=== PATIENT | male | born 1960 | race Caucasian/White ===

== ENCOUNTER 2017-08-03 07:48 | Inpatient (IN) | payer BC, OTHER ==
--- NOTE | 2017-08-02 12:42 | GHP ---
[f rep st] PREOP HISTORY AND PHYSICAL He will be an a.m. admission for surgery at [facility] on Thursday, August 03, 2017. PROBLEM LIST: Right hip arthritis. HISTORY OF PRESENT ILLNESS: The patient is a 57-year-old man admitted for a right hip Liu resurfacing. He has had progressive pain in his right hip over the last 3 or 4 years. His activities are now very limited. I did his left BHR 3 years ago. He has decided to go ahead with hip resurfacing procedure on the right hip now. PAST MEDICAL HISTORY: He is treated for elevated cholesterol and hypertension. No history of heart disease, DVT, hepatitis, MRSA staph infection, sleep apnea or bleeding problems. CURRENT MEDICATIONS: Amlodipine/hydrochlorothiazide 1 tablet per day. Crestor 10 mg every other day, losartan 100 mg/hydrochlorothiazide 25 mg 1 tablet per day. DRUG ALLERGIES: Medications: None. Metal allergy: None. Latex allergy: None. SOCIAL HISTORY: The patient is single. He works as a [employer]. He lives in [place], [place]. He does not smoke cigarettes, and occasionally drinks alcohol. FAMILY HISTORY: Positive for cancer, diabetes, heart disease, and arthritis. PHYSICAL EXAMINATION: Height 6 feet 1 inch. Weight 192 pounds. BMI 25.3. EYES: Conjunctivae and sclerae are clear. Pupils are round and reactive. MOUTH : Good oral hygiene. No loose teeth. CHEST: Clear. HEART: Regular rhythm. No murmurs. EXTREMITIES: Pertinent findings limited to his right hip. He has full hip extension and 110 degrees of flexion. External rotation 20 degrees. Internal rotation 0 degrees. Abduction 20 degrees. Exam of his left hip shows 125 degrees of hip flexion. IMAGING: His films show severe degenerative arthritis of his right hip. He has multiple small cyst in his femoral head and a few small cysts in his acetabulum. His left BHR looks excellent. The left side is a 52 mm femoral head component, and a 58 mm acetabular component. IMPRESSION ON ADMISSION: 1. Right hip severe degenerative arthritis. He is prepared for a right hip Liu hip resurfacing arthroplasty. 2. Two and a half years status post successful left BHR. 3. Treatment for hypertension and elevated cholesterol. PLAN: He will undergo a right BHR. The surgery has been described to him, including the risks, complications, expectations, and recovery time. I have discussed with him the risk of dislocation, femoral neck fracture, infection, and sciatic nerve injury. He also was fully informed on the potential risk with metal ions in the blood and in the soft tissues around the hip joint. I have also advised him that the cyst in the femoral head. Potentially could create a problem. If there is enough damage to the femoral head, it would not be advisable to go ahead with resurfacing, and I might do a total hip replacement. All his questions have been answered, and he consents to surgery. Copy requested to: Dr. aJvier Vora [place] /[id number]/MODL MTDD
[~2017-08-03 07:48] MED LIST: POVIDONE-IODINE 20 ML in SODIUM CL IRRIG SOLUTION 500 ML IRR ONE; ROPIVACAINE 0.2% 80 MG, EPINEPHrine 0.2 MG, KETOROLAC TROMETHAMINE 30 MG in SYRINGE 0 ML IU ONE; TRANEXAMIC ACID 1,000 MG in NS 100 ML IV ONE
[2017-08-03] MEDS ORDERED: ceFAZolin 1 GM/5 ML SYR ONE (07:57)
[2017-08-03] MEDS ORDERED: LIDOCAINE 1% 2 ML INJ ONE (08:08)
[2017-08-03] MEDS ORDERED: FAMOTIDINE 20 MG TAB PO ONE (08:17)
[2017-08-03] MEDS ORDERED: ceFAZolin 2 GM/DEXTROSE 100 ML IV ONE (08:17)
[2017-08-03] MEDS ORDERED: ACETAMINOPHEN 325 MG TAB PO ONE (08:17)
[2017-08-03] MEDS ORDERED: ONDANSETRON 4 MG/2 ML VIAL IVP ONE (08:17)
[2017-08-03] MEDS ORDERED: GABAPENTIN 300 MG CAP PO ONE (08:17)
[2017-08-03] MEDS ORDERED: DEXAMETHASONE 4 MG/ML VIAL IVP ONE (08:17)
[2017-08-03] MEDS ORDERED: LIDOCAINE 1% 2 ML INJ ID PRN (08:18)
[2017-08-03] MEDS ORDERED: LR 1,000 ML IV ONE (08:18)
--- NOTE | 2017-08-03 08:24 | POSTANESTH ---
Post Anesthetic Evaluation Cardiovascular Status: Normal, Stable Respiratory Status: Normal, Stable Level of Consciousness/Mental Status: Can Participate in Eval, Mildly Sleepy, Arousable Pain Control: Adequate, Prn Tx Ordered Nausea/Vomiting Control: Adequate, Prn Tx Ordered Complications Possibly Related to Anesthesia: None Noted (LE still immobile secondary to spinal block.)
--- NOTE | 2017-08-03 08:26 | PDANEPAE ---
ANE History of Present Illness 57 yo male with R hip OA for resurfacing. ANE Past Medical History - Cardiovascular History Hx Hypertension: Yes Hx Arrhythmias: No Hx Chest Pain: No Hx Coronary Artery / Peripheral Vascular Disease: No Hx CHF / Valvular Disease: No Hx Palpitations: No Cardiovascular History Comment: HYPERLIPIDEMIA - Pulmonary History Hx COPD: No Hx Asthma/Reactive Airway Disease: No Hx Recent Upper Respiratory Infection: No Hx Oxygen in Use at Home: No Hx Sleep Apnea: No Sleep Apnea Screening Result - Last Documented: Negative - Neurologic History Hx Cerebrovascular Accident: No Hx Seizures: No Hx Dementia: No - Endocrine History Hx Diabetes: No Hypothyroid: No Hyperthyroid: No Obesity: no - Renal History Hx Renal Disorders: No - Liver History Hx Hepatic Disorders: No - Neurological & Psychiatric Hx Hx Neurological and Psychiatric Disorders: No - Cancer History Hx Cancer: No - Congenital Disorder History Hx Congenital Disorders: No - GI History Hx Gastrointestinal Disorders: No - Other Health History Other Health History: OSTEOARTHRITIS BILAT HIPS. CYST L HIP - Chronic Pain History Chronic Pain: Yes (R HIP) - Surgical History Prior Surgeries: L HIP RESURFACING. WISDOM TEETH EXTRACTION. COLONOSCOPY ANE Review of Systems Review of systems is: negative Review of Systems: - Exercise capacity METS (RN): 6 METS - Systems Constitutional: Reports: no symptoms Cardiac: Reports: no symptoms ANE Patient History - Allergies Allergies/Adverse Reactions: No Known Allergies Allergy (Unverified 12/19/14 12:10) - Home Medications Home Medications: Aspirin EC [Aspirin EC 81 mg (*)] 81 mg PO DAILY 12/13/14 [Last Taken 07/27/17] Herbals/Supplements -Info Only 1 ea PO DAILY 12/13/14 [Last Taken 12/18/14] Rosuvastatin Calcium [Crestor] 10 mg PO HS 12/13/14 [Last Taken 07/27/17] amLODIPine/VALSARTAN/HCTHIAZID [Exforge HCT 10-160-12.5 mg] 1 each PO DAILY [Last Taken 07/27/17] celeCOXIB [Celebrex (*)] 200 mg PO BID 07/21/17 [Last Taken 08/02/17] - NPO status NPO Status: no food or drink >8 hours - Anes Hx Anes Hx: no prior problems - Smoking Hx Smoking Status: Never smoked Marijuana use: No - Alcohol Use Alcohol Use: Rarely - Family Anes Hx Family Anes Hx: neg - N/A Family Hx Anesthesia Complications: NONE ANE Labs/Vital Signs - Labs - CBC Platelet Count: 245 - Labs - BMP Potassium: 4.2 Creatinine: 1 - Vital Signs Vital Signs: reviewed preoperatively; see RN documention for details Height: 185.42 cm Weight: 86.183 kg ANE Physical Exam - Airway Neck exam: FROM Mallampati Score: Class 1 Mouth exam: normal dental/mouth exam - Pulmonary Pulmonary: clear to auscultation - Cardiovascular Cardiovascular: bradycardia - ASA Status ASA Status: II ANE Anesthesia Plan Anesthesia Plan: spinal
--- NOTE | 2017-08-03 09:00 | PDHPUP ---
History & Physical Update H&P update statement: This history and physical update is based on an assessment of the patient which was completed after admission or registration (within 24 hours), but prior to the surgery/procedure. H&P update: H&P reviewed & patient examined
[2017-08-03] MEDS ORDERED: PROPOFOL/EMULSION 500 MG/50 ML BOTTLE IV ONE ×2 (09:40→10:36)
[2017-08-03] MEDS ORDERED: fentaNYL 100 MCG/2 ML INJ ONE (09:40)
[2017-08-03] MEDS ORDERED: LIDOCAINE 2% 5 ML SDV ONE (09:40)
[2017-08-03] MEDS ORDERED: ePHEDrine SULFATE 25 MG/5 ML SYR ONE (10:18)
[2017-08-03] MEDS ORDERED: VASOPRESSIN 20 UNIT/ML VIAL ONE (10:36)
[2017-08-03] MEDS ORDERED: ACETAMINOPHEN 500 MG TAB PO PRN (11:30)
[2017-08-03] MEDS ORDERED: DIAZEPAM 5 MG/ML 1 ML SYR IVP PRN (11:30)
[2017-08-03] MEDS ORDERED: LR 500 ML IV PRN (11:30)
[2017-08-03] MEDS ORDERED: fentaNYL 100 MCG/2 ML INJ IVP PRN (11:30)
[2017-08-03] MEDS ORDERED: PROMETHAZINE HCL 25 MG/ML INJ IVP PRN ×2 (11:30→11:41)
[2017-08-03] MEDS ORDERED: oxyCODONE IR 5 MG TAB PO PRN ×2 (11:30→11:41)
[2017-08-03] MEDS ORDERED: NALOXONE HCL 0.4 MG/ML INJ IVP PRN (11:30)
--- NOTE | 2017-08-03 11:31 | POSTOPPROG ---
Post Op Note Date of Operation: 08/03/17 Surgeon: Steven Salvador Director Of Exhibit Development: [place] Anesthesiologist: Karena Anesthesia: IV Sedation, Spinal Post-op Diagnosis: right hip arthritis Procedure: R BHR Inf/Abcess present in the surg proc area at time of surgery?: No EBL: 100-500
[2017-08-03] MEDS ORDERED: METOCLOPRAMIDE 10 MG/2 ML VIAL IVP PRN (11:41)
[2017-08-03] MEDS ORDERED: PROMETHAZINE HCL 25 MG SUPPR PR PRN (11:41)
[2017-08-03] MEDS ORDERED: POLYETHYLENE GLYCOL 3350 17 GM PKT PO PRN (11:41)
[2017-08-03] MEDS ORDERED: ONDANSETRON DISINTEGRATING 4 MG TAB PO PRN (11:41)
[2017-08-03] MEDS ORDERED: traMADol 50 MG TAB PO PRN (11:41)
[2017-08-03] MEDS ORDERED: ONDANSETRON 4 MG/2 ML VIAL IVP PRN (11:41)
[2017-08-03] MEDS ORDERED: MAGNESIUM HYDROXIDE 30 ML UDCUP PO PRN (11:41)
[2017-08-03] MEDS ORDERED: NS 500 ML IV PRN (11:41)
[2017-08-03] MEDS ORDERED: LACTULOSE 20 GM/30 ML UDCUP PO PRN (11:41)
[2017-08-03] MEDS ORDERED: DIPHENOXYLATE/ATROPINE LOMOTIL 1 TAB PO PRN (11:41)
[2017-08-03] MEDS ORDERED: TEMAZEPAM 15 MG CAP PO PRN (11:41)
[2017-08-03] MEDS ORDERED: diphenhydrAMINE 25 MG CAP PO PRN (11:41)
[2017-08-03] MEDS ORDERED: BISACODYL 10 MG SUPP PR PRN (11:41)
[2017-08-03] MEDS ORDERED: CYCLOBENZAPRINE 10 MG TAB PO PRN (11:41)
--- NOTE | 2017-08-03 11:57 | PDMN ---
Medical Necessity Medical necessity: MCG Hip arthroplasty, medicare inpt only, 0-2 days.
[2017-08-03] MEDS ORDERED: LR 1,000 ML IV SCH (12:00)
--- NOTE | 2017-08-03 12:09 | GOP ---
[f rep st] OPERATIVE REPORT DATE OF OPERATION: 08/03/2017 SURGEON: Steven Salvador MD EMERGENCY ROOM PHYSICIAN ASSISTANT: Chepe Storey ANIMAL TRAINER and Christian Reece, PAC ANESTHESIA: Combination of Marcaine spinal and IV sedation. ANESTHESIOLOGIST: Effie Cardona MD PREOPERATIVE DIAGNOSIS: Right hip severe degenerative arthritis. POSTOPERATIVE DIAGNOSIS: Right hip severe degenerative arthritis. PROCEDURE PERFORMED: Right hip [place] hip resurfacing arthroplasty. FINDINGS: ESTIMATED BLOOD LOSS: About 400 cc. DESCRIPTION OF PROCEDURE: The patient was given 2 g of IV Ancef within 60 minutes of surgery. He al so received IV tranexamic acid at a dose of 1000 mg. He was placed on the operating room table and g iven spinal anesthesia with Marcaine by Dr. Cardona. He was then placed supine and given IV sedation . A Rosas catheter was not used. He wore a compressive stocking and SCD on the nonoperative leg. H e was rolled to the left lateral decubitus position. An axillary roll was used, and all pressure poi nts were carefully padded. The position was secured with the pegboard table attachment. I was caref ul to lock his pelvis in a rigid vertical position. His perineum was isolated with plastic adhesive drapes. His right hip and right lower extremity were prepped with ChloraPrep. They were draped free using sterile sheets, stockinette, and Ioban plastic drape. The [employer] time-out was performed to verify the correct patient identity and the c orrect surgical side and site. The [place] time-out was also performed. I made a 6 to 7 inch straight oblique posterolateral hip skin incision. The subcutaneous tissues wer e sharply divided, and hemostasis was obtained using electrocautery. His fascia yoel was identified and split along the axis of its fibers. I then curved posteriorly and proximally, and split the fasc ia of the gluteus desiree and bluntly split the muscle fibers in line with their orientation. His sc iatic nerve was identified and protected throughout the procedure. The Charnley self-retaining retra ctor was inserted. The external rotators and the posterior capsule were divided as separate layers a t the base of the femoral neck, tagged, and reflected posteriorly. The gluteus desiree tendon was di vided and tagged in order to improve exposure and release tension on the sciatic nerve. The hip was dislocated posteriorly. I used a sizing gauge to check the diameter of the neck and concluded that 5 2 mm was the proper head size. This is the same size that I had used on the opposite side. I perfor med a complete circumferential capsulotomy. I was able to retract the femoral head anteriorly and garcia periorly, and hold it out of place with appropriate retractors. The remnant of his damaged labrum wa s excised. His acetabulum was reamed sequentially up to 58 mm. He had 2 small cysts in the anterior superior aspect of his acetabulum. These were curetted. I took some of the reamings from the PlayDo bular reamer and packed these as bone graft into the cyst. I selected the Liu monoblock porou s-coated acetabular component with an outside diameter of 58 mm. This was firmly impacted and was ve ry tight. I was careful to determine proper inclination and anteversion. I used the transverse acet abular ligament and other acetabular bony landmarks to help me determine proper cup orientation. A m oderate posterior-inferior osteophyte was removed with an osteotome and rongeur. I was careful to le ave a good lip of bone and capsule extending beyond the anterior-inferior lip of the metal cup. I returned to the preparation the femoral head. Using appropriate jigs and guides, I inserted a guid e pin into the femoral head and neck. I was careful to position in such a way there would be no notc ari of the neck. The large sterile metal goniometer was used to check the neck shaft angle. I ream ed over the guide pin and inserted the reaming guide. I then used the cylindrical reamer down to the head and neck junction. This was followed by the flat reamer and the chamfer reamer. He was a few millimeters short on the right side and I was trying to intentionally lengthen him by a couple of mm. The head was sized for 52 mm. There was no impingement or damage to the neck. He had 3 small cyst on the anterior superior aspect of his femoral head. These were curetted down to healthy bone. I d rilled a small hole in the lesser trochanter and inserted a suction cannula to create negative pressu re in the medullary canal. Small holes were drilled on the flattened chamfered surfaces of the prepa red head for cement anchors. The head was thoroughly cleaned with the pulsating lavage and carefully dried. I used a CarboJet device to blow dry the cancellous surfaces. A single batch of Simplex lis ent with tobramycin was mixed. At about 50 seconds, I poured the liquid cement into the head compone nt, inserted it onto the femoral head, and impacted it into place. Excess cement was removed before it hardened. The acetabulum was irrigated, cleaned, and inspected, and the hip was reduced. Stability and range o f motion were checked. I placed my finger along the anterior aspect of the acetabular component and flexed the hip to 110 degrees. There was no anterior impingement. The suction cannula in the lesser trochanter was removed. The wound was thoroughly irrigated with a dilute Betadine solution. 40 cc of the joint anesthetic cocktail were injected into the capsule, the deep musculature, and the subcut aneous tissues along the skin edges. His sciatic nerve was reinspected and looked unharmed. The external rotators and the posterior hip c apsule were repaired in separate layers with #2 FiberWire sutures through drill holes in the greater trochanter. The gluteus desiree was repaired with 2 #2 [id number] FiberWire sutures. The fasci a yoel was closed first with a couple of interrupted [id number] #2 FiberWire sutures, followed b y a running #2 barbed Ethicon Stratafix PDO suture. Subcutaneous tissues were closed with a running 0 barbed Ethicon Stratafix MonoDerm suture. The skin was closed with a running 3-[address]atafix MonoDerm subcuticular suture. The skin edges were reapproximated and sealed with Dermabond g lue. The wound was covered with a large sterile Mepilex waterproof dressing. The sacral Mediplex dr munguia was also applied. IMPLANTS: I used a [place] [employer] Liu hip resurfacing system. The acetabular component was 58 mm in diameter and press-fit. The femoral head was 52 mm and cemented. DISPOSITION: He was awakened from anesthesia and rolled to the supine position on his [facility]. A long-leg compressive stocking and SCD were applied to the operative leg. He wore a stocking an d SCD on the opposite leg during the procedure. An abduction pillow was placed between his knees. Dean madrid was awakened from anesthesia, transferred to his [facility], and taken to PACU in satisfactory condition. COMPLICATIONS: There were no recognized intraoperative complications. COUNT: Sponge and needle count were correct on 2 occasions. Chepe Storey and Christian Reece acted as surgical assistants. Their assistance was a medical nec essity for safe completion of the procedure. /[id number]/MODL
[2017-08-03] MEDS: ACETAMINOPHEN 325 MG TAB PO SCH ×3 (13:33→23:10)
[2017-08-03] MEDS: KETOROLAC 15 MG/1 ML SDV IVP SCH ×3 (13:40→23:10)
[2017-08-03] MEDS ORDERED: ceFAZolin 2 GM/DEXTROSE 100 ML IV SCH (14:00)
[2017-08-03] MEDS: ceFAZolin 2 GM/DEXTROSE 100 ML IV SCH (18:09)
[2017-08-03] MEDS: ASPIRIN 325 MG TAB PO SCH (20:08)
[2017-08-03] MEDS: FAMOTIDINE 20 MG TAB PO SCH (20:08)
[2017-08-03] MEDS: SENNOSIDES/DOCUSATE SODIUM TAB PO SCH (20:08)
[2017-08-03] MEDS ORDERED: ROSUVASTATIN CALCIUM 10 MG TAB PO SCH (21:00)
[2017-08-04] MEDS: ceFAZolin 2 GM/DEXTROSE 100 ML IV SCH (03:09)
[2017-08-04] MEDS ORDERED: ALBUTEROL 3 ML DEYVIAL ONE (03:55)
[2017-08-04] MEDS: KETOROLAC 15 MG/1 ML SDV IVP SCH (05:45)
[2017-08-04] MEDS: ACETAMINOPHEN 325 MG TAB PO SCH (05:45)
[2017-08-04 07:46] VITALS: BP 110/73
[2017-08-04] MEDS: ASPIRIN 325 MG TAB PO SCH (08:37)
[2017-08-04] MEDS: SENNOSIDES/DOCUSATE SODIUM TAB PO SCH (08:37)
[2017-08-04] MEDS: FAMOTIDINE 20 MG TAB PO SCH (08:38)
[2017-08-04] MEDS ORDERED: VALSARTAN PO SCH (09:00)
[2017-08-04] MEDS ORDERED: HCTHIAZID PO SCH (09:00)
[2017-08-04] MEDS ORDERED: [UNRECOGNIZED DRUG - OTHER] PO SCH (09:00)
[2017-08-04] MEDS ORDERED: FERROUS SULFATE 140 MG TAB.ER PO SCH (09:00)
[2017-08-04] MEDS ORDERED: AMLODIPINE PO SCH (09:00)
--- NOTE | 2017-08-04 10:04 | SOAPPROG ---
SOAP Progress Note Assessment/Plan: Assessment: Afebrile. Minimal pain. He is up and walking in the [place]. His dressing is dry. Sciatic nerve intact. Postop films look excellent. Hemoglobin and hematocrit are good. Plan: Continue physical therapy today. Discharge later today. 08/04/17 10:04 Objective: Vital Signs Temp Pulse Resp BP Pulse Ox 36.8 C 63 16 110/73 98 08/04/17 07:45 08/04/17 07:45 08/04/17 07:45 08/04/17 07:45 08/04/17 07:45 Laboratory Results 08/04/17 04:29 08/03/17 08/04/17 08/05/17 05:59 05:59 05:59 Intake Total 0630 Output Total 8619 Balance 555 ICD10 Worksheet Patient Problems: Problems Problem Status Onset Osteoarthritis of right hip Acute Primary osteoarthritis of left hip Acute
--- NOTE | 2017-08-04 10:13 | ASMTLACE ---
LACE Length of stay for Answers: 1 day current admission Acuity / Level of Answers: Yes Care: Did the patient have an inpatient admission? Comorbidities - select Answers: Opioid dependence all that apply / Chronic pain Other Notes: HTN # of Emergency department Answers: 0 visits in the last 6 months Score: 9 Date Signed: 08/04/2017 10:12 AM Electronically Signed By:HUSSEIN Lord
--- NOTE | 2017-08-04 10:15 | GDS ---
[f rep st] DISCHARGE SUMMARY ADMISSION DIAGNOSIS: Right hip severe degenerative arthritis. DISCHARGE DIAGNOSIS: Right hip severe degenerative arthritis. NAME OF PROCEDURE: 08/03/2017, a right hip Liu hip resurfacing arthroplasty. POSTOPERATIVE COMPLICATIONS: None. CONDITION ON DISCHARGE: Improved. DESCRIPTION OF HOSPITAL COURSE: The patient was admitted to the hospital on the morning of surgery. His admission CBC was normal. The same day, under a combination of Marcaine, spinal, and IV sedatio n, he underwent a right hip [place] hip resurfacing arthroplasty. Postoperatively, he was treated with multimodal DVT prophylaxis, including aspirin. On the first postoperative day, his hemoglobin and hematocrit were 12.0 and 34.7. He was seen by Physical Therapy and made excellent progress with ambulation and stairs. By the time of discharge, he was afebrile, he was independent walking, partia l weightbearing on the left and his dressing was dry and clean. DISPOSITION: The patient is discharged to his home in [place], [place]. He may progress to full weig htbearing as tolerated. He will go to outpatient physical therapy in [place]. Because of the long dis tances he will only return to see me in the office if there is a problem. /[id number]/MODL
== END 2017-08-04 10:49 | disposition home or self-care (01) | DRG 470 ==
LOC: F3N 07:48
PROVIDERS: ADMIT Orthopaedic Surgery; ATTEND Orthopaedic Surgery
PROC: 0SUA0BZ Supplement Right Hip Joint, Acetabular Surface with Resurfacing Device, Open Approach (ICD-10-PCS; principal; 2017-08-03 09:15)
DX: M16.11 Unilateral primary osteoarthritis, right hip (principal); I10 Essential (primary) hypertension; E78.5 Hyperlipidemia, unspecified
CPT/HCPCS: 97110-GP; 97116-GP; 97161-GP; 97165-GO; C1713; J0171; J0690; J1100; J1885; J2405; J2704; J2795; J3010; J7613